=== PATIENT | female | born 1960 | race Hispanic/Latino ===

== ENCOUNTER 2017-09-15 11:59 | Emergency (ER) | payer SELFPAY ==
[2017-09-15 13:04] LABS: #Eosinphils 0.2 thou/uL (0.0-0.7); #Lymphocytes 3.8 thou/uL (1.20-3.40); #Monocytes 0.8 thou/uL (0.11-0.59); #Neutrophils 8.5 thou/uL (1.40-6.50); %Basophils 0.1 % (0.0-1.0); %Eosinophils 1.2 % (0.0-10.0); %Lymphocytes 28.6 % (21.0-51.0); %Monocytes 6.1 % (0.0-10.0); Hematocrit 41.1 % (36.0-47.0); Mean Platelet Volume 6.4 fL (7.4-10.4); Red Blood Cell (RBC) Count 4.89 mill/uL (4.20-5.40); White Blood Cell (WBC) Count 13.2 thou/uL (4.8-10.8)
[2017-09-15 13:23] LABS: ALT (SGPT) 15 U/L (8-55); AST (SGOT) 13 U/L (5-34); Alkaline Phosphatase 113 U/L (40-150); Anion Gap 11 mmol/L (10-20); BUN (Urea Nitrogen) 23 mg/dL (9.8-20.1); Bilirubin, Total 0.3 mg/dL (0.2-1.2); Calc. Creatinine Clearance 0 mL/min (70-130); Carbon Dioxide 29 mmol/L (22-29); Chloride 101 mmol/L (98-107); Estimated GFR-MDRD 55; Globulin 3.5 g/dL (2.4-3.5); Protein, Total 7.4 g/dL (6.0-8.3)
== END 2017-09-15 16:02 | disposition home or self-care (01) ==
LOC: ERS 11:59
DX: R19.7 Diarrhea, unspecified (principal); F41.9 Anxiety disorder, unspecified; F32.9 Major depressive disorder, single episode, unspecified
CPT/HCPCS: 36415; 80053; 85025; 87015; 87045; 87046; 87449; 87899; 99284

== ENCOUNTER 2020-03-11 19:05 | Inpatient (IN) | payer SELFPAY ==
--- NOTE | 2020-03-11 19:52 | RAD ---
Chest AP view INDICATION: 59-year-old female with generalized weakness COMPARISON: March 27, 2013 chest radiograph FINDINGS: Lungs: The lungs are clear Cardiac silhouette: Stable mild cardiomegaly. There are vascular calcifications involving the aortic arch. Pulmonary vasculature: Normal Pleural spaces: No pleural effusion or pneumothorax is demonstrated. Upper abdomen: No abnormality seen. Osseous structures: No acute osseous abnormality. Additional findings: None. IMPRESSION: Stable cardiomegaly. No acute cardiopulmonary abnormality demonstrated.
[2020-03-11 19:56] LABS: Bilirubin Negative (Negative); Blood, Urine Negative (Negative); Clarity Clear (Clear); Glucose, Urine (Dipstick) Normal (Negative); Leukocyte 250 Leu/uL (Negative); Nitrite Negative (Negative); Protein, Urine (Dipstick) Negative (Neg-Trace); RBC/HPF 0-3 HPF (0-3); Renal Epithelial 0-3 HPF (None Seen); Squamous Epithelial 0-3 HPF (0-3); Urobilinogen Normal mg/dL (Less than 2)
[2020-03-11 19:57] LABS: #Eosinphils 0.2 thou/uL (0.0-0.7); #Lymphocytes 2.6 thou/uL (1.20-3.40); #Monocytes 0.8 thou/uL (0.11-0.59); #Neutrophils 4.7 thou/uL (1.40-6.50); %Basophils 0.4 % (0.0-1.0); %Eosinophils 2.4 % (0.0-10.0); %Lymphocytes 30.9 % (21.0-51.0); %Monocytes 9.5 % (0.0-10.0); %Neutrophils 56.7 % (42.0-75.0); Hemoglobin 11.8 g/dL (12.0-16.0); Mean Corpuscular HGB CONC 33.1 g/dL (32.0-36.0); Mean Corpuscular Hemoglobin 27.8 pg (27.0-31.0); Mean Corpuscular Volume 83.9 fL (78.0-98.0); Mean Platelet Volume 14.3 fL (7.4-10.4); Platelet Count 6 thou/uL (130-400); RBC Distribution Width 13.5 % (11.5-14.5); Red Blood Cell (RBC) Count 4.25 mill/uL (4.20-5.40); White Blood Cell (WBC) Count 8.3 thou/uL (4.8-10.8)
[2020-03-11 20:03] LABS: Bacteria/HPF Rare-Few HPF (None Seen)
[2020-03-11 20:13] LABS: ALT (SGPT) 14 U/L (8-55); AST (SGOT) 16 U/L (5-34); Albumin 4.1 g/dL (3.5-5.0); Alkaline Phosphatase 106 U/L (40-110); Anion Gap 13 mmol/L (10-20); BUN (Urea Nitrogen) 13 mg/dL (9.8-20.1); Bilirubin, Total 0.3 mg/dL (0.2-1.2); CK (CPK) 89 U/L (29-168); Calc. Creatinine Clearance 0 mL/min (70-130); Calcium 9.1 mg/dL (7.8-10.44); Carbon Dioxide 28 mmol/L (22-29); Chloride 102 mmol/L (98-107); Estimated GFR-MDRD 74; Globulin 3.2 g/dL (2.4-3.5); Glucose 107 mg/dL (70-105); Lipase 14 U/L (8-78); Potassium 4.3 mmol/L (3.5-5.1); Protein, Total 7.3 g/dL (6.0-8.3); Sodium 139 mmol/L (136-145)
[2020-03-11] MEDS ORDERED: Acetaminophen 325 MG TAB PO PRN (21:05)
[2020-03-11] MEDS ORDERED: cefTRIAXone\\ROCEPHIN 1 GM in Sodium Chloride 0.9% 100 ML IVPB SCH (22:00)
[2020-03-11 23:20] VITALS: BMI 32.3
[2020-03-12] MEDS ORDERED: diphenhydrAMINE 50 MG/ML VIAL IVP SCH (00:45)
[2020-03-12] MEDS ORDERED: Famotidine/PF 20 mg/2ml Vial SLOW IVP SCH (00:45)
--- NOTE | 2020-03-12 00:48 | PDOC.EVN ---
Event Note - Event Note Event Note: Nursing called, patient had allergic reaction to rocephin IV. VS stable, no wheezing. Ordered antihistamines and steroid.
[2020-03-12] MEDS ORDERED: Bacteriostatic Water 30 ML VIAL FS PRN (00:52)
[2020-03-12] MEDS ORDERED: methylPREDNISolone Sod Succ 40 MG VIAL IVP SCH (01:00)
--- NOTE | 2020-03-12 02:12 | HP ---
CHIEF COMPLAINT: Generalized weakness and abnormal labs. HISTORY OF PRESENT ILLNESS: Ms. Staples is a 59-year-old female with past medical history of thyroid disease, hypertension, hyperlipidemia, diabetes mellitus, type 2, presented to the emergency room with generalized weakness and abnormal labs. At her primary care physician office, the patient had labs for weakness and fatigue, and was told that to go to the emergency room because of low platelets. At that time, platelet count was 4000. In the emergency room, the patient was found to have a platelet count of 14. The patient denies vomiting, diarrhea, fever, or chills. Lab work showed ? UTI. She also had a petechial rash more in her extremities and ecchymosis. ED physician ordered a platelet transfusion. The patient is going to be admitted to the hospital for further management. PAST MEDICAL HISTORY: 1. Diabetes mellitus, type 2. 2. Hypertension. 3. Hyperlipidemia. 4. Thyroid disease. PAST SURGICAL HISTORY: Reviewed and noncontributory. PAST PSYCHIATRIC HISTORY: Anxiety and depression. SOCIAL HISTORY: Denies smoking, alcohol use, or drug abuse. FAMILY HISTORY: Reviewed and noncontributory. HOME MEDICATIONS: Please see home medication reconciliation form for updated medications. ALLERGIES: ALLERGIC TO MORPHINE. PHYSICAL EXAMINATION: GENERAL: The patient is awake and alert. Does not appear to be in acute distress. VITAL SIGNS: Blood pressure is 120/65, pulse is 66, respiratory rate is 16, oxygen saturation 97% on room air. HEAD AND NECK: Normocephalic and atraumatic. NECK: Supple. No JVD. CHEST: Fair bilateral air entry. HEART: S1, S2. Regular. ABDOMEN: Soft, nontender. Bowel sounds present. NEUROLOGIC: Awake, alert, oriented x3. No focal deficits. PSYCH: Unable to assess. EXTREMITIES: No clubbing, no cyanosis. SKIN: Petechial rash in both lower extremities and scattered ecchymosis. LABORATORY DATA: As mentioned above in history of present illness. ASSESSMENT AND PLAN: 1. Thrombocytopenia, etiology?? 2. Urinary tract infection? 3. Diabetes mellitus, type 2. 4. Hypertension. 5. Hyperlipidemia. 6. Thyroid disease. PLAN: 1. Admit. 2. Platelet transfusion ordered by ED physician. 3. We will consult Hematology in a.m. for evaluation and further recommendations. 4. Start the patient on IV antibiotic for ? acute UTI. 5. Reconcile home medications. 6. DVT prophylaxis, SCDs. 7. Expected length of stay, 2 midnights or more. Job ID: [id number]
[2020-03-12 09:16] LABS: Hemoglobin 11.8 g/dL (12.0-16.0); Mean Corpuscular Hemoglobin 28.2 pg (27.0-31.0); Mean Corpuscular Volume 82.8 fL (78.0-98.0); Platelet Count 14 thou/uL (130-400); RBC Distribution Width 13.3 % (11.5-14.5); Red Blood Cell (RBC) Count 4.21 mill/uL (4.20-5.40)
[2020-03-12 09:21] LABS: ALT (SGPT) 15 U/L (8-55); AST (SGOT) 15 U/L (5-34); Alkaline Phosphatase 109 U/L (40-110); Anion Gap 13 mmol/L (10-20); BUN (Urea Nitrogen) 13 mg/dL (9.8-20.1); Bilirubin, Total 0.4 mg/dL (0.2-1.2); Calc. Creatinine Clearance 104 mL/min (70-130); Calcium 9.3 mg/dL (7.8-10.44); Carbon Dioxide 25 mmol/L (22-29); Chloride 104 mmol/L (98-107); Estimated GFR-MDRD 75; Globulin 3.4 g/dL (2.4-3.5); Glucose 178 mg/dL (70-105); Potassium 3.9 mmol/L (3.5-5.1); Protein, Total 7.4 g/dL (6.0-8.3); Sodium 138 mmol/L (136-145)
[2020-03-12] MEDS ORDERED: ALPRAZolam 0.5 MG TAB PO PRN (10:15)
[2020-03-12 10:42] LABS: #Basophils 0.1 thou/uL (0.0-0.2); #Monocytes 0.1 thou/uL (0.11-0.59); #Neutrophils 6.7 thou/uL (1.40-6.50); %Basophils 1.6 % (0.0-1.0); %Eosinophils 0.3 % (0.0-10.0); %Lymphocytes 12.4 % (21.0-51.0); %Monocytes 1.8 % (0.0-10.0); %Neutrophils 83.9 % (42.0-75.0)
[2020-03-12] MEDS ORDERED: Dexamethasone 4 MG TAB PO SCH ×2 (12:30→17:30)
[2020-03-12 14:08] LABS: #Lymphocytes 1.3 thou/uL (1.20-3.40); #Monocytes 0.2 thou/uL (0.11-0.59); #Neutrophils 8.3 thou/uL (1.40-6.50); %Basophils 0.1 % (0.0-1.0); %Eosinophils 0.2 % (0.0-10.0); %Lymphocytes 13.4 % (21.0-51.0); %Monocytes 2.5 % (0.0-10.0); %Neutrophils 83.9 % (42.0-75.0); Hemoglobin 11.8 g/dL (12.0-16.0); Mean Corpuscular HGB CONC 33.3 g/dL (32.0-36.0); Mean Corpuscular Hemoglobin 27.4 pg (27.0-31.0); Mean Corpuscular Volume 82.3 fL (78.0-98.0); Platelet Count 20 thou/uL (130-400); RBC Distribution Width 13.2 % (11.5-14.5); Red Blood Cell (RBC) Count 4.32 mill/uL (4.20-5.40); White Blood Cell (WBC) Count 9.9 thou/uL (4.8-10.8)
[2020-03-12 14:14] LABS: INR-International Normal Ratio 0.9; Prothrombin Time 12.5 sec (12.0-14.7)
[2020-03-12 14:15] LABS: PTT 28.6 sec (22.9-36.1)
[2020-03-12 14:29] LABS: Bilirubin, Total 0.3 mg/dL (0.2-1.2)
[2020-03-12 14:51] LABS: Hep C IgG Ab Non-Reactive (NonReactive); Hep C Index 0.14 S/CO (0-0.79)
--- NOTE | 2020-03-12 14:58 | PDOC.HOSPP ---
- Subjective Encounter Date: 03/12/20 Encounter Time: 09:50 Subjective: pt welsh speaking only; dtr at bedside, able to help w.. translation. no mey bleed or blood in the stool; no flank pain or dysuria or hematuria. some reddishness around the chin area w.. allergic vivek improved. - Objective Vital Signs & Weight: Vital Signs (12 hours) Temp Pulse Resp BP Pulse Ox 03/12/20 12:43 97.7 F 53 L 18 123/52 L 93 L 03/12/20 07:38 97.7 F 76 18 132/70 93 L 03/12/20 07:25 93 L 03/12/20 04:32 98.7 F 66 18 144/70 H 95 Weight Admit Weight 188 lb Weight 188 lb 9 oz I&O: 03/11/20 03/12/20 03/13/20 06:59 06:59 06:59 Intake Total 550 Balance 550 Result Diagrams: 03/12/20 13:53 03/12/20 08:38 Additional Labs: Accuchecks 03/12/20 03/12/20 11:41 04:39 POC Glucose 154 H 150 H Hospitalist ROS - Medication Medications: Active Medications Generic Name Dose Route Start Last Admin Trade Name Freq PRN Reason Stop Dose Admin Ciprofloxacin/Dextrose 400 mg/ 200 mls @ 200 mls/hr 03/12/20 09:00 03/12/20 08:46 Device IVPB 200 mls Q12HR COOKIE Administration Sodium Chloride 10 ml 03/12/20 09:00 03/12/20 08:46 Flush - Normal Saline IVF 10 ml Q12HR COOKIE Administration Hosp A/P - Plan UTI -cw abx and fw on the cx Thrombocytopenia --no overt bleed --several labs ordered by heme. --latest plts readings improved. - no overt bleed Hypothyroidism -on supplement. Allergic vivek -mainly hives for cephalosporing --on cipro now -- hold celexa and this has been explained to the pt. Depression - celexa on hold.
[2020-03-12] MEDS ORDERED: Dextrose 50% Abboject 50 ML SYRINGE IVP PRN (17:17)
[2020-03-12] MEDS ORDERED: Dextrose 5% in Water 1,000 ML IV PRN (17:17)
[2020-03-12] MEDS: metFORMIN 500 MG TAB PO SCH (18:00)
[2020-03-12] MEDS: Atorvastatin Calcium 10 MG TAB PO SCH (20:05)
[2020-03-13 05:21] LABS: #Lymphocytes 1.6 thou/uL (1.20-3.40); #Monocytes 0.1 thou/uL (0.11-0.59); %Eosinophils 0.2 % (0.0-10.0); %Lymphocytes 12.4 % (21.0-51.0); %Monocytes 0.9 % (0.0-10.0); %Neutrophils 86.5 % (42.0-75.0); Hemoglobin 11.6 g/dL (12.0-16.0); Mean Corpuscular Hemoglobin 26.6 pg (27.0-31.0); Mean Platelet Volume 10.2 fL (7.4-10.4); Platelet Count 47 thou/uL (130-400); RBC Distribution Width 13.3 % (11.5-14.5); Red Blood Cell (RBC) Count 4.38 mill/uL (4.20-5.40); White Blood Cell (WBC) Count 12.8 thou/uL (4.8-10.8)
--- NOTE | 2020-03-13 05:43 | CON ---
DATE OF CONSULTATION: REASON FOR CONSULTATION: Thrombocytopenia. HISTORY OF PRESENT ILLNESS: This is a 59-year-old female, who was admitted on 03/11 because of low platelet count. In the emergency room, her platelet count was 6000. She was given platelet transfusion and the platelet count earlier today is 20,000. The patient has been receiving Solu-Medrol. She has been noticing bruising tendency for about a week. She developed purpuric spots in her legs 2 to 3 days ago. She denies of any symptoms of cold or fever. She denies of headache or eye symptoms. PAST MEDICAL HISTORY: Positive for diabetes, hypertension, hyperlipidemia, and thyroid disease. PAST SURGICAL HISTORY: None relevant. PERSONAL/SOCIAL HISTORY: She does not drink or smoke or use recreational drugs. FAMILY HISTORY: There is no history of blood disorders in the family. CURRENT MEDICATIONS: 1. Xanax. 2. Lipitor. 3. Cipro intravenously. 4. Metformin 500 mg p.o. b.i.d. 5. Synthroid 75 mcg daily. REVIEW OF SYSTEMS: As above. She denies of any joint discomfort. PHYSICAL EXAMINATION: GENERAL: The patient is alert and oriented. VITAL SIGNS: Height 5 feet 4 inches and weight 188 pounds. Temperature 97.7, pulse 53, respirations 18, and blood pressure 123/52. HEENT: Unremarkable. There is no peripheral lymphadenopathy. BREASTS: Without masses or nipple retraction. CHEST: Clear to percussion and auscultation. HEART: S1 and S2. ABDOMEN: Soft without hepatosplenomegaly. EXTREMITIES: Without pedal edema. SKIN: Shows purpuric spots over both legs and a few bruises. LABORATORY DATA: CBC at the time of admission showed WBC 8300, hemoglobin 11.8, and platelet count 6000. Differential showed 56.7% neutrophils, 30.9% lymphocytes, 9.5% monocytes, and 2.4% eosinophils. CBC today shows WBC 9900, hemoglobin 11.8, and platelet count of 20,000. Her chemistry profile is essentially negative except for elevated blood glucose. Protime 12.5 and PTT 28.6. Hepatitis C antibody reactive. Chest x-ray is negative. 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 I have ordered a list of studies including and ultrasound of the abdomen to rule out splenomegaly. I am going to treat her with dexamethasone 40 mg p.o. daily x4 days to be repeated q.4 weeks. She should receive dexamethasone. She will be followed by me following discharge. Job ID: [id number]
[2020-03-13] MEDS: HumaLOG 300 UNITS/3 ML VIAL SC PRN ×3 (05:59→17:27)
[2020-03-13 07:24] LABS: #Lymphocytes 1.6 thou/uL (1.20-3.40); #Monocytes 0.2 thou/uL (0.11-0.59); #Neutrophils 12.1 thou/uL (1.40-6.50); %Basophils 0.1 % (0.0-1.0); %Eosinophils 0.2 % (0.0-10.0); %Lymphocytes 11.5 % (21.0-51.0); %Monocytes 1.1 % (0.0-10.0); %Neutrophils 87.1 % (42.0-75.0); Hemoglobin 12.1 g/dL (12.0-16.0); Mean Corpuscular HGB CONC 34.5 g/dL (32.0-36.0); Mean Corpuscular Hemoglobin 28.4 pg (27.0-31.0); Mean Corpuscular Volume 82.2 fL (78.0-98.0); Platelet Count 49 thou/uL (130-400); RBC Distribution Width 13.4 % (11.5-14.5); Red Blood Cell (RBC) Count 4.26 mill/uL (4.20-5.40); White Blood Cell (WBC) Count 13.9 thou/uL (4.8-10.8)
[2020-03-13] MEDS ORDERED: Dexamethasone 4 MG TAB PO SCH (09:00)
[2020-03-13] MEDS: metFORMIN 500 MG TAB PO SCH ×2 (09:34→17:26)
[2020-03-13] MEDS: Dexamethasone 4 MG TAB PO SCH (09:34)
[2020-03-13] MEDS: Levothyroxine Sodium 75 MCG TAB PO SCH (09:34)
--- NOTE | 2020-03-13 13:20 | PDOC.HOSPP ---
- Subjective Encounter Date: 03/13/20 Encounter Time: 09:40 Subjective: pt resting well, plts improved. no acute c/o and no evidence of any bleed or rash. - Objective Vital Signs & Weight: Vital Signs (12 hours) Temp Pulse Resp BP Pulse Ox 03/13/20 08:00 94 L 03/13/20 07:23 98.2 F 69 17 125/73 Weight Admit Weight 188 lb Weight 188 lb 9 oz I&O: 03/12/20 03/13/20 03/14/20 06:59 06:59 06:59 Intake Total 550 Balance 550 Result Diagrams: 03/13/20 07:09 03/12/20 08:38 Additional Labs: Accuchecks 03/13/20 03/13/20 03/12/20 11:53 04:21 19:34 POC Glucose 206 H 216 H 199 H 03/12/20 17:14 POC Glucose 184 H Hospitalist ROS - Medication Medications: Active Medications Generic Name Dose Route Start Last Admin Trade Name Freq PRN Reason Stop Dose Admin Atorvastatin Calcium 10 mg 03/12/20 21:00 03/12/20 20:05 Lipitor PO 10 mg HS COOKIE Administration Dexamethasone 40 mg 03/13/20 09:00 03/13/20 09:34 Decadron PO 03/15/20 09:01 40 mg DAILY COOKIE Administration Ciprofloxacin/Dextrose 400 mg/ 200 mls @ 200 mls/hr 03/12/20 09:00 03/13/20 09:35 Device IVPB 200 mls Q12HR COOKIE Administration Insulin Human Lispro 0 units 03/12/20 17:17 03/13/20 12:31 Humalog SC 4 unit .MODERATE SLIDING SC PRN Administration MODERATE SLIDING SCALE Protocol Levothyroxine Sodium 75 mcg 03/13/20 07:30 03/13/20 09:34 Synthroid PO 75 mcg DAILY-AC COOKIE Administration Metformin HCl 500 mg 03/12/20 17:00 03/13/20 09:34 Glucophage PO 500 mg BID-WM COOKIE Administration Pantoprazole Sodium 40 mg 03/13/20 09:00 03/13/20 09:35 Protonix PO 40 mg DAILY COOKIE Administration Sodium Chloride 10 ml 03/12/20 09:00 03/13/20 09:35 Flush - Normal Saline IVF 10 ml Q12HR COOKIE Administration - Exam General Appearance: NAD, awake alert Eye: PERRL ENT: normocephalic atraumatic Neck: supple Heart: RRR, normal peripheral pulses Respiratory: CTAB, normal chest expansion Gastrointestinal: soft, normal bowel sounds Neurological: no focal deficits Hosp A/P - Plan UTI -cw abx and fw on the cx Thrombocytopenia --no overt bleed or petechial rash --several labs ordered by heme. --latest plts readings improved. - fw on abd US [ordered on -fw on Autoimm ABs and serum valerie'sis --on decadron Hypothyroidism -on supplement. Allergic vivek -mainly hives for cephalosporing --on cipro now -- hold celexa and this has been explained to the pt. Depression - celexa on hold. plan for dc in am, if US ok.
--- NOTE | 2020-03-13 13:51 | ULT ---
LIMITED ULTRASOUND OF THE SPLEEN: History: ITT FINDINGS: The spleen demonstrates homogeneous echotexture and is normal in size measuring 10.2 cm in craniocaud al dimension. No fluid is seen adjacent to the spleen. IMPRESSION: Normal appearance of the spleen without evidence of splenomegaly. POS: [facility]
[2020-03-13] MEDS: Atorvastatin Calcium 10 MG TAB PO SCH (20:23)
[2020-03-14 06:11] LABS: Anion Gap 16 mmol/L (10-20); BUN (Urea Nitrogen) 24 mg/dL (9.8-20.1); Band 15 % (5-11); Calc. Creatinine Clearance 100 mL/min (70-130); Carbon Dioxide 20 mmol/L (22-29); Chloride 106 mmol/L (98-107); Estimated GFR-MDRD 72; Glucose 151 mg/dL (70-105); Hemoglobin 11.8 g/dL (12.0-16.0); Lymphocytes 4 % (21-51); MDiff Complete? YES; Mean Corpuscular HGB CONC 32.7 g/dL (32.0-36.0); Mean Corpuscular Hemoglobin 27.2 pg (27.0-31.0); Mean Corpuscular Volume 83.3 fL (78.0-98.0); Mean Platelet Volume 8.8 fL (7.4-10.4); Monocytes 1 % (0-10); Neutrophil 80 % (42-75); Platelet Count 113 thou/uL (130-400); Platelet Morphology Comment Appears Adequate; Potassium 3.7 mmol/L (3.5-5.1); RBC Distribution Width 13.6 % (11.5-14.5); RBC Morphology Normal; Red Blood Cell (RBC) Count 4.34 mill/uL (4.20-5.40); Sodium 138 mmol/L (136-145); White Blood Cell (WBC) Count 21.7 thou/uL (4.8-10.8)
[2020-03-14] MEDS: Dexamethasone 4 MG TAB PO SCH (08:18)
[2020-03-14] MEDS: Levothyroxine Sodium 75 MCG TAB PO SCH (08:19)
[2020-03-14] MEDS: metFORMIN 500 MG TAB PO SCH ×2 (08:19→15:58)
[2020-03-14 09:50] LABS: #Eosinphils 0.1 thou/uL (0.0-0.7); #Lymphocytes 2.1 thou/uL (1.20-3.40); #Monocytes 0.8 thou/uL (0.11-0.59); #Neutrophils 18.2 thou/uL (1.40-6.50); %Eosinophils 0.2 % (0.0-10.0); %Lymphocytes 9.8 % (21.0-51.0); %Monocytes 3.7 % (0.0-10.0); %Neutrophils 86.2 % (42.0-75.0); Hemoglobin 11.9 g/dL (12.0-16.0); Mean Corpuscular HGB CONC 34.8 g/dL (32.0-36.0); Mean Corpuscular Hemoglobin 28.3 pg (27.0-31.0); Mean Corpuscular Volume 81.5 fL (78.0-98.0); Mean Platelet Volume 8.5 fL (7.4-10.4); Platelet Count 115 thou/uL (130-400); RBC Distribution Width 13.5 % (11.5-14.5); Red Blood Cell (RBC) Count 4.19 mill/uL (4.20-5.40); White Blood Cell (WBC) Count 21.1 thou/uL (4.8-10.8)
--- NOTE | 2020-03-14 13:36 | PDOC.HOSPP ---
- Subjective Encounter Date: 03/14/20 Encounter Time: 09:10 Subjective: doing well, able to talk to her as medical staff w.. indonesian speaking nearby. explained the steroid doses adn duration and possible dc in a day or 2. pt appears well, no c/o. - Objective Vital Signs & Weight: Vital Signs (12 hours) Temp Pulse Resp BP Pulse Ox 03/14/20 08:00 97.7 F 60 16 120/54 L 96 Weight Admit Weight 188 lb Weight 188 lb 9 oz I&O: 03/13/20 03/14/20 03/15/20 06:59 06:59 06:59 Intake Total 1000 Balance 1000 Result Diagrams: 03/14/20 09:33 03/14/20 05:09 Additional Labs: Accuchecks 03/14/20 03/14/20 03/13/20 11:23 05:46 20:15 POC Glucose 146 H 154 H 162 H 03/13/20 15:30 POC Glucose 165 H Hospitalist ROS - Medication Medications: Active Medications Generic Name Dose Route Start Last Admin Trade Name Freq PRN Reason Stop Dose Admin Atorvastatin Calcium 10 mg 03/12/20 21:00 03/13/20 20:23 Lipitor PO 10 mg HS COOKIE Administration Dexamethasone 40 mg 03/13/20 09:00 03/14/20 08:18 Decadron PO 03/15/20 09:01 40 mg DAILY COOKIE Administration Ciprofloxacin/Dextrose 400 mg/ 200 mls @ 200 mls/hr 03/12/20 09:00 03/14/20 08:17 Device IVPB 200 mls Q12HR COOKIE Administration Insulin Human Lispro 0 units 03/12/20 17:17 03/13/20 17:27 Humalog SC 2 unit .MODERATE SLIDING SC PRN Administration MODERATE SLIDING SCALE Protocol Levothyroxine Sodium 75 mcg 03/13/20 07:30 03/14/20 08:19 Synthroid PO 75 mcg DAILY-AC COOKIE Administration Metformin HCl 500 mg 03/12/20 17:00 03/14/20 08:19 Glucophage PO 500 mg BID-WM COOKIE Administration Pantoprazole Sodium 40 mg 03/13/20 09:00 03/14/20 08:19 Protonix PO 40 mg DAILY COOKIE Administration Sodium Chloride 10 ml 03/12/20 09:00 03/14/20 08:20 Flush - Normal Saline IVF 10 ml Q12HR COOKIE Administration - Exam General Appearance: NAD, awake alert Eye: PERRL ENT: normocephalic atraumatic Neck: supple Heart: RRR Respiratory: CTAB, normal chest expansion Gastrointestinal: soft, non-tender, non-distended, normal bowel sounds Neurological: no focal deficits Psychiatric: A&O x 3 Hosp A/P - Plan UTI -cw abx and fw on the cx no arlene done. Thrombocytopenia --no overt bleed or petechial rash --several labs ordered by heme. --latest plts readings improved. - fw on abd US [ordered on -fw on Autoimm ABs and serum valerie'sis-------------->pending --on decadron Hypothyroidism -on supplement. Allergic vivek -mainly hives for cephalosporins --on cipro now -- hold celexa and this has been explained to the pt. Depression - celexa on hold. US - spleen neg for abnormality. Will check w.Navjot Eddy on dc plan [plts improved, but autoimm panel pending.]
--- NOTE | 2020-03-14 15:09 | PDOC.MOPN ---
Interval History: denies any complaints. Friend used as choir singer. - Vital Signs Vital Signs: Vital Signs (12 hours) Temp Pulse Resp BP Pulse Ox 03/14/20 08:00 97.7 F 60 16 120/54 L 96 Weight Admit Weight 188 lb Weight 188 lb 9 oz - Physical Exam General: Alert, Oriented x3, No acute distress HEENT: Atraumatic, PERRLA, EOMI, Mucous membr. moist/pink Lungs: Clear to auscultation, Normal air movement Cardiovascular: Regular rate, Normal S1, Normal S2, No murmurs, Gallops, Rubs Abdomen: Normal bowel sounds, Soft, No tenderness, No hepatospenomegaly, No masses Extremities: No clubbing (scattered petechaie), No cyanosis, No edema, Normal pulses, No tenderness/swelling Neurological: Normal speech - Labs Result Diagrams: 03/14/20 09:33 03/14/20 05:09 Lab results: Laboratory Results - last 24 hr 03/14/20 11:23: POC Glucose 146 H 03/14/20 09:33: WBC 21.1 H, RBC 4.19 L, Hgb 11.9 L, Hct 34.1 L, MCV 81.5, MCH 28.3, MCHC 34.8, RDW 13.5, Plt Count 115 L, MPV 8.5, Neutrophils % 86.2 H, Lymphocytes % 9.8 L, Monocytes % 3.7, Eosinophils % 0.2, Basophils % 0.0, Neutrophils # 18.2 H, Lymphocytes # 2.1, Monocytes # 0.8 H, Eosinophils # 0.1, Basophils # 0.0 03/14/20 05:46: POC Glucose 154 H 03/14/20 05:09: WBC 21.7 H, RBC 4.34, Hgb 11.8 L, Hct 36.2, MCV 83.3, MCH 27.2, MCHC 32.7, RDW 13.6, Plt Count 113 L, MPV 8.8, Neutrophils % (Manual) 80 H, Band Neuts % (Manual) 15 H, Lymphocytes % (Manual) 4 L, Monocytes % (Manual) 1, Plt Morphology Comment Appears Adequate, RBC Morph Comment Normal 03/14/20 05:09: Sodium 138, Potassium 3.7, Chloride 106, Carbon Dioxide 20 L, Anion Gap 16, BUN 24 H, Creatinine 0.81, Estimated GFR (MDRD) 72, Glucose 151 H , Calcium 9.0 03/13/20 20:15: POC Glucose 162 H 03/13/20 15:30: POC Glucose 165 H Status: lab reviewed by me A/P - Problem (1) Acute ITP Current Visit: Yes Code(s): D69.3 - IMMUNE THROMBOCYTOPENIC PURPURA Status: Acute - Plan Plan: 1. Day 3 of 4 Decadron 2. good response to steroids 3. patient to follow-up in clinic, discussed with Dr. Eddy 4. ok to go home tomorrow. 5. return to er for bleeding.
[2020-03-14] MEDS: Atorvastatin Calcium 10 MG TAB PO SCH (19:51)
[2020-03-15] MEDS: Levothyroxine Sodium 75 MCG TAB PO SCH (05:12)
[2020-03-15] MEDS: HumaLOG 300 UNITS/3 ML VIAL SC PRN (05:13)
[2020-03-15 05:32] LABS: #Lymphocytes 2.3 thou/uL (1.20-3.40); #Monocytes 1.1 thou/uL (0.11-0.59); #Neutrophils 14.6 thou/uL (1.40-6.50); %Basophils 0.2 % (0.0-1.0); %Eosinophils 0.2 % (0.0-10.0); %Lymphocytes 12.6 % (21.0-51.0); %Monocytes 5.8 % (0.0-10.0); %Neutrophils 81.2 % (42.0-75.0); Hemoglobin 11.8 g/dL (12.0-16.0); Mean Corpuscular HGB CONC 32.8 g/dL (32.0-36.0); Mean Corpuscular Volume 82.3 fL (78.0-98.0); Mean Platelet Volume 8.2 fL (7.4-10.4); Platelet Count 168 thou/uL (130-400); RBC Distribution Width 13.7 % (11.5-14.5); Red Blood Cell (RBC) Count 4.36 mill/uL (4.20-5.40)
[2020-03-15 07:34] VITALS: BP 118/69; TEMP 98.7
[2020-03-15] MEDS: Dexamethasone 4 MG TAB PO SCH (08:46)
[2020-03-15] MEDS: metFORMIN 500 MG TAB PO SCH (08:47)
[2020-03-15 10:14] LABS: A/G Ratio 1.2 (0.7-1.7); Albumin 3.5 g/dL (2.9-4.4); Alpha 1 0.2 g/dL (0.0-0.4); Alpha 2 0.7 g/dL (0.4-1.0); Beta 1.1 g/dL (0.7-1.3); M-Spike Not Observed g/dL (Not Observed)
--- NOTE | 2020-03-15 15:02 | DIS ---
DATE OF ADMISSION: 03/11/2020 DATE OF DISCHARGE: 03/15/2020 DISCHARGE DIAGNOSES: 1. Urinary tract infection. 2. Noted to have allergic to ceftriaxone and switched to Cipro. 3. Idiopathic thrombocytopenic purpura, improved with short course of dexamethasone, and she will follow with Dr. Eddy [facility]. 4. Hypothyroidism. 5. Depression, on Celexa, which will be on hold until she finished her Cipro. CONSULT: With oncologist, Dr. Eddy. MEDICATIONS: 1. Metformin 500 mg twice a day. 2. Levothyroxine 75 mcg daily. 3. Xanax 0.5 mg twice a day as needed. 4. Zocor 20 mg at bedtime. 5. Celexa 20 mg daily, which will be on hold until she finished her Cipro, which is 500 mg daily for 5 days. PHYSICAL EXAMINATION: VITAL SIGNS: Temperature 98.1, pulse 65, blood pressure is 118/69, saturating 92% on room air. GENERAL: The patient is alert, oriented. She is quite stable to go home. I talked to the patient through her daughter over the phone, who speaks Mexican well. The patient is Irish-speaking only. I explained that she finished her Decadron dose, and she will follow up with Dr. Eddy to evaluate further whether she needs any other intervention. CARDIOVASCULAR: Regular rate and rhythm without murmurs, rubs, or gallops. LUNGS: Clear. ABDOMEN: Quite benign. HOSPITAL COURSE: This is a 59-year-old female presented with generalized weakness and platelet count of 4000 initially and repeat platelet count was 14,000. Her UA was suggestive of urinary tract infection. Initially started on ceftriaxone. Seems to have some allergic reaction, especially hives and itchiness. stopped and started on Cipro, and she tolerated the Cipro well. She is also taking Celexa which was on hold, and it has been explained to the patient that she should not take Celexa for the next five days until the antibiotic course of Cipro is completed. Ultrasound did not show any abnormality. This is probably ITP. Her platelets improved with dexamethasone 40 mg daily for 4 days. Her platelet count will be repeated every week to monitor, and if necessary, they will follow up with additional Decadron in the clinic. Her platelets were 168,000 ont he day of discharge with a level of 20,000 on March 12. On March 15, level improved to 168,000. She also had some elevated white count, but this is very likely due to steroid. It went up to 21.7 K and improved to 18 K. During this stay, the patient did not have any fever. She is normotensive. I believe the dexamethasone-induced leukocytosis expected to be normalized as she completed four days of Decadron. The patient is stable to go home today. DISCHARGE INSTRUCTIONS: 1. Activity as tolerated. 2. Regular diet. 3. Follow up with Dr. Eddy in 2 to 3 weeks. 4. Primary care followup in 1 week. TIME SPENT: Discharge time took over 30 minutes. Job ID: [id number] MTDD
[2020-03-15 15:04] LABS: ANA Symphony (Qualitative) Negative (Negative); ANA Symphony (Quantitative) 0.3 Ratio (< 0.7 Negative); CCP IgG Antibody 0.8 EliAU/mL (<7 Negative); EliA RAS New Method **** NEW METHOD ****; Rheumatoid Factor IgM Antibody Less than 0.5 IU/mL (<3.5 Negative); dsDNA IgG Antibody 2.2 IU/mL (<10 Negative)
--- NOTE | 2020-03-19 15:04 | EKG ---
Test Reason : Blood Pressure : / mmHG Vent. Rate : 065 BPM Atrial Rate : 065 BPM P-R Int : 164 ms QRS Dur : 080 ms QT Int : 398 ms P-R-T Axes : 026 061 041 degrees QTc Int : 413 ms Normal sinus rhythm Normal ECG Confirmed by ROD BALDERAS, GERRI ([id number]), desk editor YOLA WISDOM ([id number]) on 03/19/2020 3:04:28 PM Referred By: Confirmed By:GERRI VELASCO MD
== END 2020-03-15 12:31 | disposition home or self-care (01) | DRG 813 ==
LOC: ERS 19:05 → T4-A 21:11
PROVIDERS: ADMIT Internal Medicine; ATTEND Internal Medicine
DX: D69.3 Immune thrombocytopenic purpura (principal); N39.0 Urinary tract infection, site not specified; E11.9 Type 2 diabetes mellitus without complications; E78.00 Pure hypercholesterolemia, unspecified; I10 Essential (primary) hypertension; F41.9 Anxiety disorder, unspecified; F32.9 Major depressive disorder, single episode, unspecified; E03.9 Hypothyroidism, unspecified; E78.5 Hyperlipidemia, unspecified; T36.1X5A Adverse effect of cephalosporins and other beta-lactam antibiotics, initial encounter; D72.829 Elevated white blood cell count, unspecified; L50.0 Allergic urticaria; Z79.890 Hormone replacement therapy; Z79.84 Long term (current) use of oral hypoglycemic drugs; Z79.899 Other long term (current) drug therapy; Z88.5 Allergy status to narcotic agent; T38.0X5A Adverse effect of glucocorticoids and synthetic analogues, initial encounter
CPT/HCPCS: 36415; 36416; 36430; 71045; 76705; 80048; 80053; 81003; 81015; 82247; 82550; 82607; 82746; 83520; 83605; 83690; 83735; 83880; 84165; 84443; 84484; 85025; 85610; 85730; 86038; 86200; 86225; 86704; 86705; 86706; 86707; 86803; 86850; 86900; 86901; 87340; 87350; 93005; 94760; J0696; J0744; J1200; J2920; J3490; J8540; P9035; S0028

== ENCOUNTER 2021-03-23 09:40 | Outpatient (CLI) | payer OTHER | END 2021-03-23 09:41 | disposition home or self-care (01) | LOC: BICRAD 09:40 | DX: R05 Cough (principal); R06.2 Wheezing; I51.7 Cardiomegaly; R91.8 Other nonspecific abnormal finding of lung field | CPT/HCPCS: 71046 ==

== ENCOUNTER 2021-04-02 22:44 | Emergency (ER) | payer OTHER, SELFPAY ==
[2021-04-02] MEDS ORDERED: Ketorolac Tromethamine 30 MG/ML VIAL ONE (23:17)
[2021-04-02 23:37] LABS: #Eosinphils 0.2 thou/uL (0.0-0.7); #Lymphocytes 4.3 thou/uL (1.20-3.40); #Neutrophils 9.5 thou/uL (1.40-6.50); %Basophils 0.1 % (0.0-1.0); %Eosinophils 1.1 % (0.0-10.0); %Lymphocytes 28.7 % (21.0-51.0); %Monocytes 6.9 % (0.0-10.0); %Neutrophils 63.1 % (42.0-75.0); Hemoglobin 12.3 g/dL (12.0-16.0); Mean Corpuscular HGB CONC 33.9 g/dL (32.0-36.0); Mean Corpuscular Hemoglobin 28.1 pg (27.0-31.0); Mean Platelet Volume 6.6 fL (7.4-10.4); Platelet Count 364 thou/uL (130-400); RBC Distribution Width 13.7 % (11.5-14.5); Red Blood Cell (RBC) Count 4.39 mill/uL (4.20-5.40)
[2021-04-02 23:58] LABS: ALT (SGPT) 17 U/L (8-55); AST (SGOT) 12 U/L (5-34); Alkaline Phosphatase 123 U/L (40-110); Anion Gap 14 mmol/L (10-20); BUN (Urea Nitrogen) 25 mg/dL (9.8-20.1); Bilirubin, Total 0.3 mg/dL (0.2-1.2); Calc. Creatinine Clearance 0 mL/min (70-130); Calcium 8.7 mg/dL (7.8-10.44); Carbon Dioxide 28 mmol/L (23-31); Chloride 99 mmol/L (98-107); Globulin 3.2 g/dL (2.4-3.5); Glucose 157 mg/dL (80-115); Potassium 4.4 mmol/L (3.5-5.1); Protein, Total 7.2 g/dL (5.8-8.1); Sodium 137 mmol/L (136-145)
[2021-04-03 00:23] LABS: Bilirubin Negative (Negative); Blood, Urine Negative (Negative); Clarity Clear (Clear); Glucose, Urine (Dipstick) Normal (Negative); Ketone, Urine Negative (Negative); Leukocyte Negative Leu/uL (Negative); Nitrite Negative (Negative); Protein, Urine (Dipstick) Negative (Neg-Trace); Specific Gravity, Urine 1.025 (1.002-1.036); Urobilinogen Normal mg/dL (Less than 2); pH, Urine 7.5 (5.0-9.0)
== END 2021-04-03 01:30 | disposition home or self-care (01) ==
LOC: ERS 22:44
DX: R53.83 Other fatigue (principal); J40 Bronchitis, not specified as acute or chronic; E11.9 Type 2 diabetes mellitus without complications; E78.00 Pure hypercholesterolemia, unspecified; I10 Essential (primary) hypertension; R19.7 Diarrhea, unspecified; R51.9 Headache, unspecified; Z79.899 Other long term (current) drug therapy; Z79.84 Long term (current) use of oral hypoglycemic drugs
CPT/HCPCS: 51701; 80053; 81003; 85025; 96374; J1885

== ENCOUNTER 2021-09-19 15:26 | Inpatient (IN) | payer SELFPAY ==
[~2021-09-19 15:26] MED LIST: Iopamidol-370 76% 500 ML 1 ML ONE
[2021-09-19 16:18] LABS: #Eosinphils 0.1 thou/uL (0.0-0.7); #Monocytes 0.9 thou/uL (0.11-0.59); %Basophils 0.2 % (0.0-1.0); %Eosinophils 0.5 % (0.0-10.0); %Lymphocytes 13.1 % (21.0-51.0); %Monocytes 6.1 % (0.0-10.0); %Neutrophils 80.1 % (42.0-75.0); Mean Corpuscular HGB CONC 33.6 g/dL (32.0-36.0); Mean Corpuscular Hemoglobin 27.8 pg (27.0-31.0); Mean Corpuscular Volume 82.8 fL (78.0-98.0); Mean Platelet Volume 7.7 fL (7.4-10.4); Platelet Count 217 thou/uL (130-400); RBC Distribution Width 12.5 % (11.5-14.5)
[2021-09-19] MEDS ORDERED: Acetaminophen 500 MG TAB ONE (16:26)
[2021-09-19 16:28] LABS: ALT (SGPT) 13 U/L (8-55); AST (SGOT) 19 U/L (5-34); Albumin 4.1 g/dL (3.4-4.8); Alkaline Phosphatase 109 U/L (40-110); Anion Gap 11 mmol/L (10-20); BUN (Urea Nitrogen) 26 mg/dL (9.8-20.1); Bilirubin, Total 0.3 mg/dL (0.2-1.2); Calc. Creatinine Clearance 0 mL/min (70-130); Calcium 9.1 mg/dL (7.8-10.44); Carbon Dioxide 27 mmol/L (23-31); Chloride 103 mmol/L (98-107); Globulin 3.3 g/dL (2.4-3.5); Glucose 100 mg/dL (80-115); Potassium 3.7 mmol/L (3.5-5.1); Protein, Total 7.4 g/dL (5.8-8.1); Sodium 137 mmol/L (136-145)
[2021-09-19 16:29] LABS: PTT 32.9 sec (22.9-36.1); Prothrombin Time 12.8 sec (12.0-14.7)
[2021-09-19 16:40] LABS: Bacteria/HPF None Seen HPF (None Seen); Bilirubin Negative (Negative); Blood, Urine Negative (Negative); Clarity Clear (Clear); Glucose, Urine (Dipstick) Normal (Negative); Ketone, Urine Negative (Negative); Leukocyte 75 Leu/uL (Negative); Nitrite Negative (Negative); Protein, Urine (Dipstick) Negative (Neg-Trace); RBC/HPF 0-3 HPF (0-3); Specific Gravity, Urine 1.017 (1.002-1.036); Squamous Epithelial 0-3 HPF (0-3); Urobilinogen Normal mg/dL (Less than 2)
[2021-09-19 17:04] LABS: SARS-CoV-2 NAA Rapid Test Not Detected (NotDetected)
[2021-09-19] MEDS ORDERED: Aztreonam 2 GM in Sodium Chloride 0.9% 100 ML IVPB SCH (17:30)
[2021-09-19] MEDS ORDERED: Vancomycin 1 GM/200 ML BAG ONE (19:22)
[2021-09-19] MEDS ORDERED: Dextrose 50% Abboject 50 ML SYRINGE SLOW IVP PRN (21:40)
[2021-09-19] MEDS ORDERED: Acetaminophen 650 MG Suppository PR PRN (21:40)
[2021-09-19] MEDS ORDERED: Ondansetron PF 4 MG/2 ML Vial IVP PRN (21:40)
[2021-09-19] MEDS ORDERED: Acetaminophen 325 MG TAB PO PRN (21:40)
[2021-09-19] MEDS ORDERED: Dextrose 5% in Water 1,000 ML IV PRN (21:40)
[2021-09-19] MEDS ORDERED: Ondansetron ODT 4 MG TAB PO PRN (21:40)
[2021-09-19] MEDS ORDERED: hydrALAZINE 20 MG/ML VIAL SLOW IVP PRN (21:40)
[2021-09-19] MEDS ORDERED: HumaLOG 300 UNITS/3 ML VIAL SC PRN ×2 (21:40)
[2021-09-19 23:36] VITALS: BMI 33.6
[2021-09-20 06:25] LABS: #Basophils 0.1 thou/uL (0.0-0.2); #Eosinphils 0.1 thou/uL (0.0-0.7); #Lymphocytes 2.1 thou/uL (1.20-3.40); #Monocytes 0.8 thou/uL (0.11-0.59); #Neutrophils 7.5 thou/uL (1.40-6.50); %Basophils 0.5 % (0.0-1.0); %Eosinophils 0.9 % (0.0-10.0); %Lymphocytes 19.8 % (21.0-51.0); %Monocytes 7.7 % (0.0-10.0); %Neutrophils 71.1 % (42.0-75.0); Mean Corpuscular HGB CONC 32.9 g/dL (32.0-36.0); Mean Corpuscular Hemoglobin 27.3 pg (27.0-31.0); Mean Corpuscular Volume 83.1 fL (78.0-98.0); Mean Platelet Volume 7.8 fL (7.4-10.4); Platelet Count 197 thou/uL (130-400); RBC Distribution Width 12.6 % (11.5-14.5); Red Blood Cell (RBC) Count 4.01 mill/uL (4.20-5.40); White Blood Cell (WBC) Count 10.5 thou/uL (4.8-10.8)
[2021-09-20 06:40] LABS: Anion Gap 11 mmol/L (10-20); BUN (Urea Nitrogen) 16 mg/dL (9.8-20.1); Calc. Creatinine Clearance 115 mL/min (70-130); Calcium 8.6 mg/dL (7.8-10.44); Carbon Dioxide 22 mmol/L (23-31); Chloride 109 mmol/L (98-107); Glucose 110 mg/dL (80-115); Potassium 3.6 mmol/L (3.5-5.1); Sodium 138 mmol/L (136-145)
[2021-09-20] MEDS ORDERED: Vancomycin HCl 1.25 GM in Sodium Chloride 0.9% 250 ML 250 ML IVPB SCH (08:00)
[2021-09-20] MEDS: Enoxaparin Sodium 40 MG/0.4 ML SYRINGE SC SCH (08:45)
[2021-09-20] MEDS ORDERED: GUAIFENESIN SF SOLN 200 MG/10 ML UDCUP PO PRN (10:43)
[2021-09-20] MEDS ORDERED: guaiFENesin ER 600 MG TAB PO SCH (10:45)
[2021-09-20] MEDS ORDERED: Potassium Chloride 20 MEQ TAB PO SCH (17:00)
[2021-09-20] MEDS: Atorvastatin Calcium 10 MG TAB PO SCH (20:51)
[2021-09-20] MEDS: guaiFENesin ER 600 MG TAB PO SCH (20:51)
[2021-09-20] MEDS ORDERED: Simvastatin 20 MG TAB PO SCH (21:00)
[2021-09-21] MEDS: Levothyroxine Sodium 75 MCG TAB PO SCH (05:27)
[2021-09-21] MEDS: Enoxaparin Sodium 40 MG/0.4 ML SYRINGE SC SCH (08:32)
[2021-09-21] MEDS: guaiFENesin ER 600 MG TAB PO SCH ×2 (08:32→20:08)
[2021-09-21] MEDS ORDERED: FLU VACC QS2021-22(6MOS UP)/PF 60 MCG/0.5 ML SYRINGE IM ONE (09:00)
[2021-09-21] MEDS: Benzonatate 100 MG CAP PO PRN (13:32)
[2021-09-21] MEDS: ALPRAZolam 0.5 MG TAB PO PRN (19:34)
[2021-09-21] MEDS: Atorvastatin Calcium 10 MG TAB PO SCH (20:08)
[2021-09-22] MEDS: Levothyroxine Sodium 75 MCG TAB PO SCH (05:35)
[2021-09-22 05:52] LABS: #Eosinphils 0.2 thou/uL (0.0-0.7); #Lymphocytes 2.3 thou/uL (1.20-3.40); #Monocytes 0.8 thou/uL (0.11-0.59); #Neutrophils 4.1 thou/uL (1.40-6.50); %Basophils 0.3 % (0.0-1.0); %Monocytes 11.1 % (0.0-10.0); %Neutrophils 54.7 % (42.0-75.0); Hemoglobin 11.4 g/dL (12.0-16.0); Mean Corpuscular HGB CONC 33.5 g/dL (32.0-36.0); Mean Corpuscular Hemoglobin 27.6 pg (27.0-31.0); Mean Corpuscular Volume 82.5 fL (78.0-98.0); Mean Platelet Volume 7.4 fL (7.4-10.4); Platelet Count 178 thou/uL (130-400); RBC Distribution Width 12.6 % (11.5-14.5); Red Blood Cell (RBC) Count 4.11 mill/uL (4.20-5.40); White Blood Cell (WBC) Count 7.5 thou/uL (4.8-10.8)
[2021-09-22 06:16] LABS: Anion Gap 12 mmol/L (10-20); BUN (Urea Nitrogen) 19 mg/dL (9.8-20.1); CRP (Inflammatory) 2.09 mg/dL (= or < 0.5); Calc. Creatinine Clearance 102 mL/min (70-130); Calcium 9.2 mg/dL (7.8-10.44); Carbon Dioxide 24 mmol/L (23-31); Chloride 106 mmol/L (98-107); Glucose 105 mg/dL (80-115); Potassium 4.1 mmol/L (3.5-5.1); Sodium 138 mmol/L (136-145)
[2021-09-22] MEDS: guaiFENesin ER 600 MG TAB PO SCH ×2 (09:31→20:05)
[2021-09-22] MEDS: Enoxaparin Sodium 40 MG/0.4 ML SYRINGE SC SCH (09:31)
[2021-09-22] MEDS: Benzonatate 100 MG CAP PO PRN (14:10)
[2021-09-22] MEDS: ALPRAZolam 0.5 MG TAB PO PRN (20:05)
[2021-09-22] MEDS: Atorvastatin Calcium 10 MG TAB PO SCH (20:05)
[2021-09-23] MEDS: Benzonatate 100 MG CAP PO PRN ×2 (02:59→20:30)
[2021-09-23] MEDS: Levothyroxine Sodium 75 MCG TAB PO SCH (05:42)
[2021-09-23] MEDS: Enoxaparin Sodium 40 MG/0.4 ML SYRINGE SC SCH (08:19)
[2021-09-23] MEDS: guaiFENesin ER 600 MG TAB PO SCH ×2 (08:20→20:30)
[2021-09-23 16:12] LABS: QuantiFERON-TB Gold Plus Negative (Negative)
[2021-09-23] MEDS: Atorvastatin Calcium 10 MG TAB PO SCH (20:30)
[2021-09-24] MEDS: Levothyroxine Sodium 75 MCG TAB PO SCH (05:18)
[2021-09-24] MEDS: Benzonatate 100 MG CAP PO PRN (05:18)
[2021-09-24 06:29] LABS: #Eosinphils 0.2 thou/uL (0.0-0.7); #Lymphocytes 2.4 thou/uL (1.20-3.40); #Monocytes 0.9 thou/uL (0.11-0.59); #Neutrophils 4.6 thou/uL (1.40-6.50); %Basophils 0.6 % (0.0-1.0); %Eosinophils 2.8 % (0.0-10.0); %Lymphocytes 29.1 % (21.0-51.0); %Monocytes 11.3 % (0.0-10.0); %Neutrophils 56.2 % (42.0-75.0); Hemoglobin 11.4 g/dL (12.0-16.0); Mean Corpuscular HGB CONC 34.2 g/dL (32.0-36.0); Mean Corpuscular Hemoglobin 28.3 pg (27.0-31.0); Mean Corpuscular Volume 82.7 fL (78.0-98.0); Mean Platelet Volume 7.3 fL (7.4-10.4); Platelet Count 206 thou/uL (130-400); RBC Distribution Width 12.5 % (11.5-14.5); Red Blood Cell (RBC) Count 4.02 mill/uL (4.20-5.40); White Blood Cell (WBC) Count 8.2 thou/uL (4.8-10.8)
[2021-09-24 06:52] LABS: Anion Gap 12 mmol/L (10-20); BUN (Urea Nitrogen) 17 mg/dL (9.8-20.1); Calc. Creatinine Clearance 110 mL/min (70-130); Calcium 8.9 mg/dL (7.8-10.44); Carbon Dioxide 25 mmol/L (23-31); Chloride 105 mmol/L (98-107); Glucose 99 mg/dL (80-115); Sodium 138 mmol/L (136-145)
[2021-09-24] MEDS: Enoxaparin Sodium 40 MG/0.4 ML SYRINGE SC SCH (09:12)
[2021-09-24] MEDS: guaiFENesin ER 600 MG TAB PO SCH ×2 (09:13→20:00)
[2021-09-24 15:04] LABS: ANA Symphony (Qualitative) Negative (Negative); ANA Symphony (Quantitative) 0.6 Ratio (< 0.7 Negative); dsDNA IgG Antibody 2.3 IU/mL (<10 Negative)
[2021-09-24] MEDS: Atorvastatin Calcium 10 MG TAB PO SCH (19:59)
[2021-09-25] MEDS: Levothyroxine Sodium 75 MCG TAB PO SCH (05:57)
[2021-09-25 06:26] LABS: #Eosinphils 0.2 thou/uL (0.0-0.7); #Lymphocytes 2.1 thou/uL (1.20-3.40); #Monocytes 0.6 thou/uL (0.11-0.59); #Neutrophils 4.1 thou/uL (1.40-6.50); %Basophils 0.6 % (0.0-1.0); %Eosinophils 2.8 % (0.0-10.0); %Lymphocytes 30.3 % (21.0-51.0); %Monocytes 8.2 % (0.0-10.0); %Neutrophils 58.2 % (42.0-75.0); Hemoglobin 11.3 g/dL (12.0-16.0); Mean Corpuscular HGB CONC 32.6 g/dL (32.0-36.0); Mean Corpuscular Hemoglobin 26.8 pg (27.0-31.0); Mean Corpuscular Volume 82.3 fL (78.0-98.0); Mean Platelet Volume 7.1 fL (7.4-10.4); Platelet Count 222 thou/uL (130-400); RBC Distribution Width 12.4 % (11.5-14.5); Red Blood Cell (RBC) Count 4.21 mill/uL (4.20-5.40)
[2021-09-25 06:50] LABS: Anion Gap 11 mmol/L (10-20); BUN (Urea Nitrogen) 15 mg/dL (9.8-20.1); Calc. Creatinine Clearance 111 mL/min (70-130); Calcium 9.2 mg/dL (7.8-10.44); Carbon Dioxide 24 mmol/L (23-31); Chloride 107 mmol/L (98-107); Glucose 106 mg/dL (80-115); Potassium 4.2 mmol/L (3.5-5.1); Sodium 138 mmol/L (136-145)
[2021-09-25 08:24] VITALS: BP 105/69; TEMP 98.3
[2021-09-25] MEDS: guaiFENesin ER 600 MG TAB PO SCH (09:18)
[2021-09-25] MEDS: Enoxaparin Sodium 40 MG/0.4 ML SYRINGE SC SCH (09:18)
[2021-09-27 14:38] LABS: Cytoplasmic (C-ANCA) <1:20 titer (Neg:<1:20); Myeloperoxidase AutoAbs <9.0 U/mL (0.0-9.0); Perinuclear (P-ANCA) <1:20 titer (Neg:<1:20); Proteinase-3 AutoAbs Less than 3.5 U/mL (0.0-3.5)
== END 2021-09-25 13:53 | disposition home or self-care (01) | DRG 871 ==
LOC: ERS 15:26 → T4-A 20:17
PROVIDERS: ADMIT Student in an Organized Health Care Education/Training Program; ATTEND Internal Medicine
PROC: 8E0ZXY6 Isolation (ICD-10-PCS; principal; 2021-09-19)
DX: A41.9 Sepsis, unspecified organism (principal); J18.9 Pneumonia, unspecified organism; J96.01 Acute respiratory failure with hypoxia; D69.3 Immune thrombocytopenic purpura; E11.9 Type 2 diabetes mellitus without complications; E78.00 Pure hypercholesterolemia, unspecified; I10 Essential (primary) hypertension; F41.9 Anxiety disorder, unspecified; F32.A Depression, unspecified; Z20.822 Contact with and (suspected) exposure to COVID-19; J98.4 Other disorders of lung; K21.9 Gastro-esophageal reflux disease without esophagitis; E87.6 Hypokalemia; D64.9 Anemia, unspecified; E78.5 Hyperlipidemia, unspecified; E03.9 Hypothyroidism, unspecified; Z86.73 Personal history of transient ischemic attack (TIA), and cerebral infarction without residual deficits; Z88.5 Allergy status to narcotic agent; Z79.899 Other long term (current) drug therapy
CPT/HCPCS: 0240U; 36415; 36416; 71045; 71260; 74177; 80048; 80053; 81003; 81015; 83520; 83605; 85025; 85610; 85652; 85730; 86038; 86140; 86225; 86256; 86480; 87040; 87116; 87206; 87449; 87899; 93005; 96365; 96375; J1650; J1956; J3370; J3490; J7050; Q0162; Q9967

== ENCOUNTER 2021-11-01 09:25 | Outpatient (CLI) | payer SELFPAY | END 2021-11-01 09:26 | disposition home or self-care (01) | LOC: RAD 09:25 | PROVIDERS: ATTEND Internal Medicine | DX: R06.00 Dyspnea, unspecified (principal); J98.4 Other disorders of lung; J47.9 Bronchiectasis, uncomplicated | CPT/HCPCS: 71046 ==

== ENCOUNTER 2023-06-23 10:20 | Emergency (ER) | payer SELFPAY ==
[2023-06-23 11:14] LABS: #Eosinphils 0.2 thou/uL (0.0-0.7); #Monocytes 0.7 thou/uL (0.11-0.59); #Neutrophils 6.5 thou/uL (1.40-6.50); %Basophils 0.4 % (0.0-1.0); %Eosinophils 1.6 % (0.0-10.0); %Lymphocytes 24.5 % (21.0-51.0); %Monocytes 7.1 % (0.0-10.0); %Neutrophils 66.2 % (42.0-75.0); Hemoglobin 11.5 g/dL (12.0-16.0); Mean Corpuscular HGB CONC 31.9 g/dL (32.0-36.0); Mean Corpuscular Hemoglobin 26.4 pg (27.0-31.0); Mean Corpuscular Volume 82.8 fl (78.0-98.0); Mean Platelet Volume 9.5 fL (7.4-10.4); Platelet Count 274 10x3/uL (130-400); RBC Distribution Width 14.2 % (11.5-14.5); Red Blood Cell (RBC) Count 4.35 mill/uL (4.20-5.40); White Blood Cell (WBC) Count 9.9 10x3/uL (4.8-10.8)
[2023-06-23 11:26] LABS: ALT (SGPT) 10 U/L (8-55); AST (SGOT) 14 U/L (5-34); Albumin 3.8 g/dL (3.4-4.8); Alkaline Phosphatase 104 U/L (40-110); Anion Gap 13 mmol/L (10-20); BUN (Urea Nitrogen) 23 mg/dL (9.8-20.1); Bilirubin, Total 0.3 mg/dL (0.2-1.2); Calc. Creatinine Clearance 0 mL/min (70-130); Calcium 9.1 mg/dL (7.8-10.44); Carbon Dioxide 25 mmol/L (23-31); Chloride 103 mmol/L (98-107); Estimated GFR 82; Globulin 3.3 g/dL (2.4-3.5); Glucose 99 mg/dL (80-115); Lipase 10 U/L (8-78); Potassium 4.5 mmol/L (3.5-5.1); Protein, Total 7.1 g/dL (5.8-8.1); Sodium 136 mmol/L (136-145)
[2023-06-23 11:30] LABS: Troponin I Less than 0.010 ng/mL (< 0.028)
[2023-06-23 11:44] LABS: Bacteria/HPF None Seen HPF (None Seen); Bilirubin Negative (Negative); Blood, Urine Negative (Negative); CAUTI Indications for Culture Alt mental st,lethar; Clarity Clear (Clear); Glucose, Urine (Dipstick) Normal (Negative); Ketone, Urine Negative (Negative); Leukocyte Negative Leu/uL (Negative); Nitrite Negative (Negative); Protein, Urine (Dipstick) Negative (Neg-Trace); RBC/HPF None Seen HPF (0-3); Specific Gravity, Urine 1.013 (1.002-1.036); Squamous Epithelial None Seen HPF (0-3); Urobilinogen Normal mg/dL (Less than 2); WBC/HPF None Seen HPF (0-3); pH, Urine 7.5 (5.0-9.0)
[2023-06-23 11:46] LABS: Urine Culture Reflex No No
[2023-06-23 12:17] LABS: SARS-CoV-2 NAA Rapid Test Not Detected (NotDetected)
== END 2023-06-23 13:18 | disposition home or self-care (01) ==
LOC: ERS 10:20
DX: R53.1 Weakness (principal); D64.9 Anemia, unspecified; E11.9 Type 2 diabetes mellitus without complications; E03.9 Hypothyroidism, unspecified; I10 Essential (primary) hypertension; E78.5 Hyperlipidemia, unspecified; Z20.822 Contact with and (suspected) exposure to COVID-19; Z79.84 Long term (current) use of oral hypoglycemic drugs; Z79.899 Other long term (current) drug therapy
CPT/HCPCS: 36415; 36416; 71046; 80053; 81001; 83605; 83690; 83735; 83880; 84443; 84484; 85025; 93005; 96360

== ENCOUNTER 2024-10-17 09:13 | Emergency (ER) | payer OTHER ==
[2024-10-17 10:00] LABS: #Basophils 0.04 10x3/uL (0.0-0.2); %Basophils 0.4 % (0.0-1.0); %Eosinophils 1.8 % (0.0-10.0); %Lymphocytes 25.9 % (21.0-51.0); %Monocytes 5.6 % (0.0-10.0); Hematocrit 35.3 % (36.0-47.0); Hemoglobin 11.5 g/dL (12.0-16.0); Mean Corpuscular HGB CONC 32.6 g/dL (32.0-36.0); Mean Corpuscular Hemoglobin 26.6 pg (27.0-31.0); Mean Corpuscular Volume 81.7 fL (78.0-98.0); Mean Platelet Volume 8.7 fL (7.4-10.4); Platelet Count 309 10x3/uL (130-400); RBC Distribution Width 13.6 % (11.5-14.5); Red Blood Cell (RBC) Count 4.32 mill/uL (4.20-5.40)
[2024-10-17 10:14] LABS: ALT (SGPT) 10 U/L (8-55); AST (SGOT) 15 U/L (5-34); Albumin 3.8 g/dL (3.4-4.8); Alkaline Phosphatase 114 U/L (40-110); Anion Gap 14 mmol/L (10-20); BUN (Urea Nitrogen) 14 mg/dL (9.8-20.1); Bilirubin, Total 0.5 mg/dL (0.2-1.2); Calc. Creatinine Clearance 0 mL/min (70-130); Calcium 8.8 mg/dL (7.8-10.44); Carbon Dioxide 21 mmol/L (23-31); Chloride 107 mmol/L (98-107); Estimated GFR 98; Globulin 3.8 g/dL (2.4-3.5); Glucose 154 mg/dL (80-115); Lipase 14 U/L (8-78); Potassium 3.5 mmol/L (3.5-5.1); Protein, Total 7.6 g/dL (5.8-8.1); Sodium 138 mmol/L (136-145)
[2024-10-17 11:10] LABS: Bacteria/HPF None Seen HPF (None Seen); Bilirubin Negative (Negative); Blood, Urine Negative (Negative); CAUTI Indications for Culture Dysuria,urgency,freq; Clarity Clear (Clear); Glucose, Urine (Dipstick) Normal (Negative); Ketone, Urine Negative (Negative); Leukocyte 250 Leu/uL (Negative); Nitrite Negative (Negative); Protein, Urine (Dipstick) Negative (Neg-Trace); RBC/HPF 0-3 HPF (0-3); Specific Gravity, Urine 1.014 (1.002-1.036); Squamous Epithelial 0-3 HPF (0-3); Urobilinogen Normal mg/dL (Less than 2); WBC/HPF 0-3 HPF (0-3)
[2024-10-17 11:13] LABS: Urine Culture Reflex No No
[2024-10-17 11:28] LABS: Troponin I Less than 0.010 ng/mL (< 0.028)
== END 2024-10-17 12:08 | disposition home or self-care (01) ==
LOC: ERS 09:13
DX: J18.9 Pneumonia, unspecified organism (principal); I10 Essential (primary) hypertension; E11.9 Type 2 diabetes mellitus without complications; E78.5 Hyperlipidemia, unspecified
CPT/HCPCS: 36415; 71045; 80053; 81001; 83605; 83690; 84484; 85025; 87428

== ENCOUNTER 2025-06-01 09:44 | Outpatient (CLI) | payer OTHER | END 2025-06-01 09:45 | disposition home or self-care (01) | LOC: BICULT 09:44 | PROVIDERS: ATTEND Physician Assistant | DX: N28.89 Other specified disorders of kidney and ureter (principal) | CPT/HCPCS: 76770 ==